=== PATIENT | female | born 1960 | race Caucasian/White ===

== ENCOUNTER 2016-09-30 17:16 | Emergency (ER) | payer MEDICARE, MEDICAID ==
--- NOTE | 2016-09-30 18:22 | EDM.PDOC ---
ED HPI GENERAL MEDICAL PROBLEM - General Chief Complaint: General Stated Complaint: WEAKNESS Time Seen by Provider: 09/30/16 17:58 Source of Information: Reports: Patient, Other (worker) History Limitations: Reports: No limitations - History of Present Illness INITIAL COMMENTS - FREE TEXT/NARRATIVE: This is a 56yo F with slurred speech who states she was feeling not well from 330-430 time range and began feeling weak on the left side especially the left leg and was unable to get up and walk after work at around 5-530 and immediately was brought to the ER. No history of Stroke, [place] or DVT/PE. She works at the [employer]. Came via private vehicle. Onset: sudden Duration: Hour(s):, Other (resolving on arrival) Location: Reports: lower extremity, left Severity: mild Improves with: Reports: None Worsens with: Reports: None Associated Symptoms: Reports: weakness - Related Data Allergies Allergy/AdvReac Type Severity Reaction Status Date / Time acetaminophen [From Percocet] Allergy Itching Verified 10/25/14 14:40 codeine Allergy Dizziness Verified 10/25/14 14:40 morphine Allergy Swelling Verified 10/25/14 14:40 oxycodone HCl [From Percocet] Allergy Itching Verified 10/25/14 14:40 Penicillins Allergy Difficulty Verified 10/25/14 14:40 Breathing Sulfa (Sulfonamide Allergy Hives Verified 10/25/14 14:40 Antibiotics) varenicline tartrate Allergy Confusion Verified 10/25/14 14:40 [From Chantix] Home Meds: Home Meds ARIPiprazole [Abilify] 15 mg PO DAILY 09/28/13 [History] Diltiazem [Diltiazem SR] 120 mg PO DAILY 09/28/13 [History] LORazepam [Ativan] 0.5 mg PO BID 09/28/13 [History] Levothyroxine [Synthroid] 88 mcg PO ACBRK 09/28/13 [History] Melatonin 10 mg PO DAILY 09/28/13 [History] Metoprolol Tartrate [Lopressor] 25 mg PO BID 09/28/13 [History] Modafinil [Provigil] 400 mg PO DAILY 09/28/13 [History] Venlafaxine [Effexor XR] 300 mg PO DAILY 09/28/13 [History] atorvaSTATin [Lipitor] 80 mg PO BEDTIME 09/28/13 [History] buPROPion HCl [Wellbutrin Sr] 200 mg PO BID 09/28/13 [History] Aspirin [Ecotrin] 81 mg PO DAILY 09/30/16 [History] Donepezil HCl [Aricept] 10 mg PO DAILY 09/30/16 [History] Topiramate [Topiramate ER] 50 mg PO DAILY 09/30/16 [History] Past Medical History HEENT History: Reports: Impaired vision, Other (see below) Other HEENT History: reading glassess Cardiovascular History: Reports: High cholesterol, Hypertension Respiratory History: Reports: Sleep apnea Gastrointestinal History: Reports: Chronic constipation 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 GI Surgical History: Reports: Bariatric procedure, Other (see below) Other GI Surgeries/Procedures: left hemicholectomy, gastric bypass Social & Family History - Tobacco Use Smoking Status *Q: Never Smoker Years of Tobacco use: 30 Used Tobacco, but Quit: Yes Month Tobacco Last Used: September Second Hand Smoke Exposure: Yes - Alcohol Use Days Per Week of Alcohol Use: 0 - Recreational Drug Use Recreational Drug Use: No ED ROS GENERAL - Review of Systems Review Of Systems: ROS reveals no pertinent complaints other than HPI. ED EXAM, GENERAL - Physical Exam Exam: See Below Exam Limited By: No limitations General Appearance: alert, WD/WN, no apparent distress Eye Exam: bilateral eye: EOMI, PERRL Ears: normal external exam Ear Exam: bilateral ear: auricle normal, canal normal, TM normal Nose: normal inspection Throat/Mouth: Normal inspection, Normal lips, Normal oropharynx, No airway compromise Head: atraumatic, normocephalic Neck: normal inspection, supple, non-tender Respiratory/Chest: no respiratory distress, lungs clear, no accessory muscle use Cardiovascular: normal peripheral pulses, regular rate, rhythm Peripheral Pulses: 1+: dorsalis pedis (L), dorsalis pedis (R) GI/Abdominal: normal bowel sounds, soft, non tender Back Exam: normal inspection Extremities: normal inspection, normal range of motion Neurological: alert, oriented, CN II-XII intact, slow to respond, sensory/motor deficit (left leg weakness initially but resolved during the physical exam) Psychiatric: normal affect, normal mood Skin Exam: Warm, Dry, Intact Course - Vital Signs Last Recorded V/S: Last Vital Signs Temp 36.1 C 09/30/16 17:50 Pulse 85 09/30/16 17:50 Resp 20 09/30/16 17:50 BP 143/85 H 09/30/16 17:50 Pulse Ox 98 09/30/16 17:50 - Re-Assessments/Exams Free Text/Narrative Re-Assessment/Exam: 09/30/16 18:21 Improved symptoms during physical examination. Left leg weakness on intial test and improved as we completed neuro. Near full resolution within minutes after Neuro. Departure - Departure Time of Disposition: 19:00 Disposition: Home, Self-Care 01 Condition: good Clinical Impression: TIA (transient ischemic attack) Qualifiers: Transient cerebral ischemia type: other Qualified Code(s): G45.8 - Other transient cerebral ischemic attacks and related syndromes Instructions: Transient Ischemic Attack, [id number] Referrals: PCP,None [Primary Care Provider] - Forms: ED Department Discharge Care Plan Goals: Take a baby aspirin every day, enteric coated. Return to clinic if needed. If feeling OK you do not need to
[2016-09-30 19:40] VITALS: BP 143/85
--- NOTE | 2016-10-01 07:47 | CT ---
DATE OF SERVICE: 09/30/16 CLINICAL DATA: left sided weakness UNENHANCED BRAIN CT: Multislice acquisition through the brain without IV contrast was performed. Comparison is made to a prior exam dated 09/24/16. There is mild diffuse cerebral atrophy. No masses or mass effect. No intracranial hemorrhage. No evidence of acute or subacute infarct. No significant changes from the prior exam. IMPRESSION: No acute intracranial abnormalities. [id number] [facility]
== END 2016-09-30 19:00 | disposition home or self-care (01) ==
LOC: LB.ED 17:16
DX: G45.8 Other transient cerebral ischemic attacks and related syndromes (principal); I10 Essential (primary) hypertension; F41.9 Anxiety disorder, unspecified; E78.00 Pure hypercholesterolemia, unspecified; F32.9 Major depressive disorder, single episode, unspecified; Z88.6 Allergy status to analgesic agent; Z88.5 Allergy status to narcotic agent; Z88.0 Allergy status to penicillin; Z88.2 Allergy status to sulfonamides; Z88.8 Allergy status to other drugs, medicaments and biological substances; Z79.899 Other long term (current) drug therapy; Z79.82 Long term (current) use of aspirin; Z98.890 Other specified postprocedural states
CPT/HCPCS: 70450; 99284; 99285-25

== ENCOUNTER 2020-01-31 13:22 | Emergency (ER) | payer MEDICARE, MEDICAID ==
[2020-01-31 13:46] VITALS: BP 127/61; PULSE 66
--- NOTE | 2020-01-31 14:15 | EDM.PDOC ---
ED HPI GENERAL MEDICAL PROBLEM - General Chief Complaint: General Stated Complaint: BACK PAIN Time Seen by Provider: 01/31/20 14:00 Source of Information: Reports: Patient History Limitations: Reports: No Limitations - History of Present Illness INITIAL COMMENTS - FREE TEXT/NARRATIVE: Pt states she slipped in the bathroom approximately 2 weeks ago and has been having lower, non-radiating, back pain since. States she has been going to chiropractor a few times a week and gets help for a day or so but pain recurs. She has past h/o gastric bypass and is unable to take NSAID and is allergic to hydrocodone, and morphine and codeine. Lives alone. states Tylenol not very helpful. No other injuries, no head injury. Pt takes medication for htn, hyperlipemia and depression. Onset: Gradual Onset Date: 01/17/20 Bilateral Back Pain Score (Numeric/FACES): 6 - Related Data Allergies Allergy/AdvReac Type Severity Reaction Status Date / Time acetaminophen [From Percocet] Allergy Itching Verified 01/31/20 13:48 codeine Allergy Dizziness Verified 01/31/20 13:48 morphine Allergy Swelling Verified 01/31/20 13:48 oxycodone HCl [From Percocet] Allergy Itching Verified 01/31/20 13:48 Penicillins Allergy Difficulty Verified 01/31/20 13:48 Breathing Sulfa (Sulfonamide Allergy Hives Verified 01/31/20 13:48 Antibiotics) varenicline tartrate Allergy Confusion Verified 01/31/20 13:48 [From Chantix] Home Meds: Home Meds ARIPiprazole [Abilify] 15 mg PO DAILY 09/28/13 [History] Diltiazem [Diltiazem SR] 120 mg PO DAILY 09/28/13 [History] LORazepam [Ativan] 0.5 mg PO BID 09/28/13 [History] Levothyroxine [Synthroid] 88 mcg PO ACBRK 09/28/13 [History] Melatonin 10 mg PO DAILY 09/28/13 [History] Metoprolol Tartrate [Lopressor] 25 mg PO BID 09/28/13 [History] Venlafaxine [Effexor XR] 300 mg PO DAILY 09/28/13 [History] atorvaSTATin [Lipitor] 80 mg PO BEDTIME 09/28/13 [History] buPROPion HCL [Wellbutrin Sr] 200 mg PO BID 09/28/13 [History] modafiniL [Provigil] 400 mg PO DAILY 09/28/13 [History] Aspirin [Ecotrin EC] 81 mg PO DAILY 09/30/16 [History] Donepezil HCl [Aricept] 10 mg PO DAILY 09/30/16 [History] Topiramate [Topiramate ER] 50 mg PO DAILY 09/30/16 [History] Cyclobenzaprine [Flexeril] 10 mg PO BEDTIME 3 Days #3 tab 01/31/20 [Rx] Past Medical History HEENT History: Reports: Impaired Vision, Other (See Below) Other HEENT History: reading glassess Cardiovascular History: Reports: High Cholesterol, Hypertension Respiratory History: Reports: Sleep Apnea Gastrointestinal History: Reports: Chronic Constipation Other Gastrointestinal History: 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: 2 Musculoskeletal History: Reports: Back Pain, Chronic Neurological History: Reports: Head Trauma Psychiatric History: Reports: Anxiety, Depression Endocrine/Metabolic History: Reports: Hypothyroidism, Obesity/BMI 30+ Oncologic (Cancer) History: Reports: None - Infectious Disease History Infectious Disease History: Reports: Mumps - Past Surgical History GI Surgical History: Reports: Bariatric Procedure, Other (See Below) Social & Family History - Tobacco Use Smoking Status *Q: Current Some Day Smoker Years of Tobacco use: 30 Packs/Tins Daily: 0.5 - Caffeine Use Caffeine Use: Reports: Coffee - Recreational Drug Use Recreational Drug Use: No ED ROS GENERAL - Review of Systems Review Of Systems: See Below Constitutional: Reports: No Symptoms HEENT: Reports: No Symptoms Respiratory: Reports: No Symptoms Cardiovascular: Reports: No Symptoms. Denies: Chest Pain Endocrine: Reports: No Symptoms GI/Abdominal: Reports: No Symptoms Musculoskeletal: Reports: Back Pain ED EXAM,LOWER BACK PAIN/INJURY - Physical Exam Exam: See Below Exam Limited By: No Limitations Ears: Normal External Exam Nose: Normal Inspection, Normal Mucosa Throat/Mouth: Normal Inspection, Normal Lips, Normal Teeth Head: Atraumatic, Normocephalic Neck: Normal Inspection, Supple, Non-Tender Respiratory/Chest: No Respiratory Distress, Lungs Clear Cardiovascular: Normal Peripheral Pulses, Regular Rate, Rhythm Back Exam: Normal Inspection, Full Range of Motion, Paraspinal Tenderness. No: CVA Tenderness (L), Decreased Range of Motion, Muscle Spasm, Vertebral Tenderness Extremities: Normal Inspection, Normal Range of Motion, Non-Tender Neurological: Alert, Normal Mood/Affect, Normal Dorsiflexion, CN II-XII Intact Psychiatric: Normal Affect Skin Exam: Warm, Dry, Intact, Normal Color Course - Vital Signs Last Recorded V/S: Last Vital Signs Temp 97.5 F 01/31/20 13:44 Pulse 66 01/31/20 13:44 Resp 18 01/31/20 13:44 BP 127/61 01/31/20 13:44 Pulse Ox 96 01/31/20 13:44 - Orders/Labs/Meds Orders: Active Orders 24 hr Category Date Time Status Lumbar Spine 2 or 3V [CR] Stat Exams 01/31/20 14:03 Taken - Re-Assessments/Exams Free Text/Narrative Re-Assessment/Exam: 01/31/20 14:22 xray of lumbar spine, no fx. DJD, Spondylolisthesis [id number] 01/31/20 15:10 Pt was given Rx for Flexeril and advised to follow-up with primary care doctor. Departure - Departure Time of Disposition: 14:53 Disposition: Home, Self-Care 01 Condition: Fair Clinical Impression: Spondylisthesis - Discharge Information *PRESCRIPTION DRUG MONITORING PROGRAM REVIEWED*: Not Applicable *COPY OF PRESCRIPTION DRUG MONITORING REPORT IN PATIENT SUSAN: Not Applicable Prescriptions: Cyclobenzaprine [Flexeril] 10 mg PO BEDTIME 3 Days #3 tab Instructions: Spondylolisthesis Referrals: PCP,None [Primary Care Provider] - Forms: ED Department Discharge Sepsis Event Note (ED) - Evaluation Sepsis Screening Result: No Definite Risk - Focused Exam Vital Signs: Vital Signs Temp Pulse Resp BP Pulse Ox 01/31/20 13:44 97.5 F 66 18 127/61 96 - My Orders Last 24 Hours: My Active Orders 01/31/20 14:03 Lumbar Spine 2 or 3V [CR] Stat - Assessment/Plan Last 24 Hours: My Active Orders 01/31/20 14:03 Lumbar Spine 2 or 3V [CR] Stat
--- NOTE | 2020-02-01 09:23 | CR ---
DATE OF SERVICE: 01/31/20 CLINICAL DATA: back pain LUMBAR SPINE: Comparison is made to a prior exam dated 07/08/14. There is diffuse osteopenia. The vertebral bodies are of average height. No acute fracture or dislocation. There is grade I anterolisthesis of L4 on L5. There is degenerative disc disease throughout the lower thoracic and lumbar spine with disc space narrowing at multiple levels. There is facet joint hypertrophy in the mid and lower lumbar spine. There are multiple metallic coils in the abdomen and there are surgical clips in the mid and lower abdomen. The patient is status post gastric banding. No other significant findings. [id number] [facility]
== END 2020-01-31 15:14 | disposition home or self-care (01) ==
LOC: LB.ED 13:22
DX: M43.16 Spondylolisthesis, lumbar region (principal); E78.00 Pure hypercholesterolemia, unspecified; I10 Essential (primary) hypertension; F41.9 Anxiety disorder, unspecified; F32.9 Major depressive disorder, single episode, unspecified; E03.9 Hypothyroidism, unspecified; E66.9 Obesity, unspecified; F17.210 Nicotine dependence, cigarettes, uncomplicated; Z68.41 Body mass index [BMI] 40.0-44.9, adult; Z88.6 Allergy status to analgesic agent; Z88.5 Allergy status to narcotic agent; Z88.0 Allergy status to penicillin; Z88.2 Allergy status to sulfonamides; Z88.8 Allergy status to other drugs, medicaments and biological substances; Z79.899 Other long term (current) drug therapy
CPT/HCPCS: 72100; 99283-25

== ENCOUNTER 2020-08-07 09:29 | Day surgery (SDC) | payer MEDICARE, MEDICAID ==
[~2020-08-07 09:29] MED LIST: Metoclopramide 10 MG/2 ML SDV IV PRN
[2020-08-07] MEDS: Sodium Chloride 0.9% 1,000 ML IV SCH (10:00)
[2020-08-07] MEDS ORDERED: Propofol 200 MG/20 ML SDV ONE (13:45)
[2020-08-07 16:03] VITALS: BP 140/60; PULSE 71
--- NOTE | 2020-08-07 17:59 | OR ---
DATE OF OPERATION: 08/07/2020 SURGEON: Killian Nieves MD PREOPERATIVE DIAGNOSIS: Surveillance colonoscopy. POSTOPERATIVE DIAGNOSIS: Surveillance colonoscopy. PROCEDURE: Colonoscopy with biopsy. ANESTHESIA: MAC. ESTIMATED BLOOD LOSS: Minimal. COMPLICATIONS: None. INDICATION FOR THE PROCEDURE: The patient is a 60-year-old female, here today for surveillance colonoscopy. Last colonoscopy was about 5 years ago. She did have polyps on that one. She otherwise denies any change in bowel habits. She does have history of left hemicolectomy for some sort of mass that was attached to the colon, however, was not colon cancer per the patient. The patient was brought to the OR today for colonoscopy. DESCRIPTION OF PROCEDURE: Informed consent was obtained with the patient. The patient was taken to the operating room, placed on table in left lateral decubitus position. Monitored anesthesia care was administered. Digital rectal exam performed, it was normal. Colonoscope was then advanced through the anus, directed towards the cecum. Cecum was reached and identified by appendiceal orifice and ileocecal valve. Colonoscope was then slowly withdrawn. She did have what appeared to be a submucosal lipoma in the ascending colon. The mucosa over this looked nearly normal. Biopsy of this was taken, but was rather during biopsy. She did have a few scattered small diverticula throughout the colon as well. The colonoscope was then further withdrawn. Rectum was also otherwise unremarkable. Colonoscope was then withdrawn. FINDINGS: Likely submucosal lipoma in the ascending colon and some diverticula. Otherwise, no polyps or cancer identified. RECOMMENDATIONS: We will follow up on pathology. Otherwise, we would recommend a repeat surveillance colonoscopy in 5 years. MICHELLE/LILI /[id number]
== END 2020-08-07 15:40 | disposition home or self-care (01) ==
LOC: LB.SDS 09:29
PROVIDERS: ATTEND Surgery
DX: Z12.11 Encounter for screening for malignant neoplasm of colon (principal); K57.30 Diverticulosis of large intestine without perforation or abscess without bleeding; K63.89 Other specified diseases of intestine; E11.9 Type 2 diabetes mellitus without complications; F17.200 Nicotine dependence, unspecified, uncomplicated; Z88.0 Allergy status to penicillin; Z88.2 Allergy status to sulfonamides; Z88.8 Allergy status to other drugs, medicaments and biological substances; Z88.6 Allergy status to analgesic agent; Z86.010 Personal history of colon polyps; Z98.890 Other specified postprocedural states
CPT/HCPCS: J2704; J7030

== ENCOUNTER 2021-12-08 13:34 | Emergency (ER) | payer MEDICARE, MEDICAID ==
[2021-12-08] MEDS ORDERED: Ketorolac 30 MG/ML SDV IVPUSH ONE (14:08)
[2021-12-08] MEDS ORDERED: Sodium Chloride 0.9% 1,000 ML IV ONE (14:09)
[2021-12-08 14:46] LABS: ESTIMATED GFR 57 mL/min (>60)
[2021-12-08] MEDS ORDERED: Ketorolac 30 MG/ML SDV ONE (15:12)
[2021-12-08 18:42] VITALS: BP 118/73; PULSE 72
== END 2021-12-08 16:07 | disposition home or self-care (01) ==
LOC: LB.ED 13:34
DX: E86.0 Dehydration (principal); E78.00 Pure hypercholesterolemia, unspecified; E03.9 Hypothyroidism, unspecified; I10 Essential (primary) hypertension; E66.9 Obesity, unspecified; Z68.30 Body mass index [BMI] 30.0-30.9, adult; Z88.6 Allergy status to analgesic agent; Z88.5 Allergy status to narcotic agent; Z88.0 Allergy status to penicillin; Z88.2 Allergy status to sulfonamides; Z79.899 Other long term (current) drug therapy
CPT/HCPCS: 36415; 70450; 80053; 83605; 83880; 84484; 85025; 85651; 93005; 96361; 96374; 99285; J1885; J7030; 93010; 99283